=== PATIENT | female | born 1955 | race Caucasian/White ===

== ENCOUNTER 2017-09-06 14:15 | Emergency (ER) | payer OTHER ==
[2017-09-06] MEDS ORDERED: ONDANSETRON HCL MDV 20ML 2 MG/ML VIAL ONE ×2 (14:40→17:55)
[2017-09-06] MEDS ORDERED: MORPHINE SULFATE 4 MG/1ML SYG ONE (14:40)
[2017-09-06 14:45] LABS: BASOPHILS % (AUTO) 0.5 % (0.0-5.0); EOSINOPHILS % (AUTO) 2.2 % (0.0-8.0); HEMATOCRIT 35.9 % (36-48); LYMPHOCYTES % (AUTO) 15.9 % (21.0-51.0); MEAN CORPUSCULAR HEMOGLOBIN 28.3 pg (27.0-33.0); MEAN CORPUSCULAR HGB CONC 33.5 g/dL (32.0-36.0); MEAN CORPUSCULAR VOLUME 84.7 fL (79-99); MONOCYTES % (AUTO) 5.3 % (3.0-13.0); NEUTROPHILS % (AUTO) 76.1 % (40.0-77.0); PLATELET COUNT (AUTO) 271 K/uL (130-400); RED BLOOD CELL COUNT(AUTO) 4.23 MIL/uL (4.00-5.50); RED CELL DISTRIBUTION WIDTH 15.9 % (11.0-15.5); WHITE BLOOD COUNT (AUTO) 10.6 K/uL (4.8-10.8)
[2017-09-06 14:54] LABS: POTASSIUM 3.9 mmol/L (3.5-5.1)
[2017-09-06 14:59] LABS: ALBUMIN 3.9 g/dL (3.5-5.0); BILIRUBIN,TOTAL 0.3 mg/dL (0.2-1.0); TOTAL PROTEIN, SERUM 8.1 g/dL (6.0-8.3)
[2017-09-06 15:12] LABS: CREATINE KINASE MB 1.2 ng/mL (0.5-3.6)
[2017-09-06 15:26] LABS: APPEARANCE,URINE Clear (CLEAR); BILIRUBIN,URINE Negative (NEGATIVE); COLOR,URINE Yellow (YELLOW); GLUCOSE, URINE (UA) Negative (NEGATIVE); KETONES,URINE Negative (NEGATIVE); LEUKOCYTE ESTERASE ,URINE Negative (NEGATIVE); NITRATE,URINE Negative (NEGATIVE); OCCULT BLOOD,URINE Negative (NEGATIVE); PROTEIN,URINE Negative (NEGATIVE); UROBILINOGEN,URINE 0.2 mg/dL (0.2-1.0)
[2017-09-06] MEDS ORDERED: IOPAMIDOL-370 75 ML VIAL IV ONE (16:30)
[2017-09-06] MEDS ORDERED: SODIUM CHLORIDE 0.9% 1000ML 1,000 ML IV ONE (17:55)
== END 2017-09-06 20:25 | disposition home or self-care (01) ==
LOC: EDH 14:15
DX: A08.39 Other viral enteritis (principal); R10.10 Upper abdominal pain, unspecified; I10 Essential (primary) hypertension; Z88.8 Allergy status to other drugs, medicaments and biological substances
CPT/HCPCS: 36415; 74177; 76705; 80053; 81003; 82550; 82553; 83690; 84484; 85025; 93005; 96361; 96374; 96375; 96376; 99285; J2270; J7030; Q9967

== ENCOUNTER → 2020-08-18 | Outpatient (CLI) | payer OTHER ==
[~2020-08-18] MED LIST: ASPI-556 PO; DIATR MEGLU/DIATRIZOATE SODIUM 30 ML BOTTLE ONE; HYDR25TA PO; LOSA100T58 PO
== END | disposition home or self-care (01) ==
LOC: RAH 08:20
PROVIDERS: ATTEND Internal Medicine Gastroenterology
DX: K56.609 Unspecified intestinal obstruction, unspecified as to partial versus complete obstruction (principal)
CPT/HCPCS: 74250; Q9963

== ENCOUNTER 2024-04-22 21:41 | Emergency (ER) | payer OTHER ==
[~2024-04-22] VITALS: Ht 152.4 cm; Wt 69.9 kg
[~2024-04-22 21:41] MED LIST changes: -DIATR MEGLU/DIATRIZOATE SODIUM 30 ML BOTTLE ONE; -LOSA100T58 PO; +LOSA100T59 PO
[2024-04-22 22:37] LABS: BASOPHILS # (AUTO) 0.04 K/uL (0.00-0.20); BASOPHILS % (AUTO) 0.4 % (0.0-5.0); EOSINOPHILS # (AUTO) 0.19 K/uL (0.00-0.70); EOSINOPHILS % (AUTO) 1.7 % (0.0-8.0); HEMATOCRIT 37.5 % (36-48); IMMATURE GRANULOCYTE ABSOLUTE 0.03 K/uL (0-1); LYMPHOCYTES # (AUTO) 1.9 K/uL (1.0-4.8); LYMPHOCYTES % (AUTO) 17.2 % (21.0-51.0); MEAN CORPUSCULAR HEMOGLOBIN 28.9 pg (27.0-33.0); MEAN CORPUSCULAR HGB CONC 32.5 g/dL (32.0-36.0); MEAN CORPUSCULAR VOLUME 88.9 fL (79-99); MONOCYTES # (AUTO) 0.8 K/uL (0.1-1.0); MONOCYTES % (AUTO) 6.9 % (3.0-13.0); NEUTROPHILS # (AUTO) 8.2 K/uL (1.8-7.7); NEUTROPHILS % (AUTO) 73.5 % (40.0-77.0); PLATELET COUNT (AUTO) 278 K/uL (130-400); RED BLOOD CELL COUNT(AUTO) 4.22 MIL/uL (4.00-5.50); RED CELL DISTRIBUTION WIDTH 14.9 % (11.0-15.5); WHITE BLOOD COUNT (AUTO) 11.1 K/uL (4.8-10.8)
[2024-04-22 22:51] LABS: CREATININE 1.2 mg/dL (0.5-1.0)
[2024-04-22 22:55] LABS: ALBUMIN 3.7 g/dL (3.5-5.0); BILIRUBIN,DIRECT 0.1 mg/dL (0.0-0.3); BILIRUBIN,TOTAL 0.3 mg/dL (0.2-1.0); TOTAL PROTEIN, SERUM 7.7 g/dL (6.0-8.3)
[2024-04-22] MEDS: ondanSETRON 4MG INJ IVP ONE (23:22)
[2024-04-22] MEDS: ondanSETRON 4MG INJ ONE (23:22)
--- NOTE | 2024-04-22 23:56 | HMCIMG ---
CT ABDOMEN/PELVIS W/O CONTRAST HISTORY: Abdominal pain COMPARISON: 04/27/2023 TECHNIQUE: Multiple sequential axial images of the abdomen and pelvis were obtained from the dome of the diaphragm through symphysis pubis. Patient was not given contrast through intravenous route. Oral contrast was not given. FINDINGS: No pleural effusion is seen bilaterally. There is no evidence of parenchymal disease or pulmonary nodule of the visualized lower lungs. Degenerative changes of the thoracolumbar spine are present. The heart is not enlarged. Liver is borderline in size measuring 15 cm. A small hiatal hernia is seen. Post cholecystectomy changes are seen. Gastric distention is seen. Mild small bowel dilatation is seen with fluid-filled small bowel loops and colon and air-fluid levels may be related to enterocolitis with bowel obstruction not completely excluded. The liver, spleen, adrenal glands and pancreas are unremarkable. There is no evidence of hydronephrosis bilaterally. No evidence of renal stone is seen. Fecal material is seen in the colon. There are normal size retroperitoneal and mesenteric lymph nodes. No ascites is seen. Atherosclerotic changes are present. Appendix is not seen. Pelvic sidewalls are symmetric bilaterally. Bladder is well distended without wall thickening. IMPRESSION: 1. Gastric distention is seen. Mild small bowel dilatation is seen with fluid-filled small bowel loops and colon and air-fluid levels may be related to enterocolitis with bowel obstruction not completely excluded. CT was performed with one or more following dose reduction techniques: automated exposure control, adjustment of the mA and kv according to patient's size, or use of a iterative reconstruction technique.
[2024-04-23] MEDS ORDERED: ONDA-243 PO (00:23)
[2024-04-23] MEDS ORDERED: METR-172 PO (00:23)
[2024-04-23] MEDS ORDERED: FAMO-136 PO (00:23)
--- NOTE | 2024-04-23 00:26 | ERN ---
General Chief Complaint: Abdominal Pain Stated Complaint: C/O ABD PAIN WITH N X V Time Seen by MD: 21:49 Time Seen by Midlevel: 21:49 Source: patient History of Present Illness Initial Comments Patient is a 68-year-old female past medical history of multiple small-bowel obstructions presenting to the emergency department with sudden onset of diffuse abdominal pain with associated nausea and vomiting. Patient believes it may be the start of a small-bowel obstruction. She does report eating some food that did not sit well with her stomach prior to the pain starting. No other symptoms reported at this time. Allergies: Coded Allergies: Beta-Blockers (Beta-Adrenergic Bloc (Unverified Adverse Reaction, Severe, 06/28/19) JAUNDICE Home Meds Active Scripts Metronidazole (Metronidazole) 500 Mg Tablet, 1 TAB PO BID for 5 Days, #10 TAB 0 Refills Prov:BERTA CUNHA 04/23/24 Famotidine (Pepcid) 20 Mg Tablet, 1 TAB PO BID for 7 Days, #14 TAB 0 Refills Prov:BERTA CUNHA 04/23/24 Ondansetron (Ondansetron Odt) 4 Mg Tab.rapdis, 4 MG PO BID for 7 Days, #14 TAB Prov:BERTA CUNHA 04/23/24 Reported Medications Aspirin (Aspir 81) 81 Mg Tablet.dr, 81 MG PO DAILY, TAB 06/28/19 Hydrochlorothiazide (Hydrochlorothiazide) 25 Mg Tablet, 25 MG PO DAILY, TAB 06/28/19 Losartan Potassium (Losartan Potassium) 100 Mg Tablet, 100 MG PO DAILY, TAB 06/28/19 Past Medical History Past Medical History: Hypertension Medical History Other: SBO Past Surgical History: Cholecystectomy Surgical History Other: HX OF BOWEL RESECTION ROS Dictation CONSTITUTIONAL: Negative except for HPI HEAD/FACE: Negative except for HPI EENT: Negative except for HPI RESPIRATORY: Negative except for HPI GASTROINTESTINAL/ABDOMINAL: Negative except for HPI GENITOURINARY: Negative except for HPI MUSCULOSKELETAL: Negative except for HPI INTEGUMENTARY: Negative except for HPI NEUROLOGICAL/PSYCH: Negative except for HPI HEMATOLOGIC/LYMPHATIC: Negative except for HPI All Systems Negative, Except as noted above. 13 point review of systems assessed and all negative except for above. Physical Exam Physical Exam Dictation Vital Signs reviewed General Appearance: Alert, oriented x 3, no acute distress, well developed, nourished. Head and Face: non-traumatic. Eyes: PERRL, pink conjunctivas, eyelid no trauma, anterior chamber with arcus senilis. Ears: Pinnas intact and no signs of trauma or erythema ear canals clear and no discharge TM no erythema Nose: No discharge, no bleeding. Oropharynx: Mouth normal, tongue pink, pharynx clear,no erythema, tonsils no exudates, no abscesses noted, mucous membrane moist Neck: Supple, non-tender, no thyromegaly, no masses, no JVD, no bruits Breast:Deferred Chest:No tenderness, no crepitus, no paradoxical movement, no retractions Lungs:Clear, well-ventilated, symmetric, no rales, no wheezing, no rhonchi, no stridor, good breath sounds bilaterally Heart: Regular rate, regular rhythm, no murmur, no gallops Vascular: no peripheral edema, Abdomen: Soft, positive bowel sounds, nondistended, no guarding, Diffuse abdominal tenderness, no rebound, no masses no hepatomegaly, no splenomegaly, no Ojeda's sign, no hernias. Rectal: Deferred Genital: Deferred Neurological: Normal speech, motor function intact, sensory function intact Musculoskeletal: Neck nontender, full range of motion, back nontender, full range of motion, Extremities: nontender, full range of motion Skin: Color pink, dry, no turgor, no rash, no lacerations, no abrasions, no contusions. Lymphatic: Deferred Results Laboratory and Microbiology Lab and Micro Result Laboratory Tests Test 04/22/24 22:24 White Blood Count 11.1 K/uL (4.8-10.8) H Red Blood Count 4.22 MIL/uL (4.00-5.50) Hemoglobin 12.2 g/dL (12.0-16.0) Hematocrit 37.5 % (36-48) Mean Corpuscular Volume 88.9 fL (79-99) Mean Corpuscular Hemoglobin 28.9 pg (27.0-33.0) Mean Corpuscular Hemoglobin Concent 32.5 g/dL (32.0-36.0) Red Cell Distribution Width 14.9 % (11.0-15.5) Platelet Count 278 K/uL (130-400) Mean Platelet Volume 9.5 fL (7.5-10.5) Immature Granulocyte % (Auto) 0.3 % (0-1) Neutrophils (%) (Auto) 73.5 % (40.0-77.0) Lymphocytes (%) (Auto) 17.2 % (21.0-51.0) L Monocytes (%) (Auto) 6.9 % (3.0-13.0) Eosinophils (%) (Auto) 1.7 % (0.0-8.0) Basophils (%) (Auto) 0.4 % (0.0-5.0) Neutrophils # (Auto) 8.2 K/uL (1.8-7.7) H Lymphocytes # (Auto) 1.9 K/uL (1.0-4.8) Monocytes # (Auto) 0.8 K/uL (0.1-1.0) Eosinophils # (Auto) 0.19 K/uL (0.00-0.70) Basophils # (Auto) 0.04 K/uL (0.00-0.20) Absolute Immature Granulocyte (auto 0.03 K/uL (0-1) Nucleated Red Blood Cells 0.0 % (0.0-0.19) Sodium Level 140 mmol/L (136-145) Potassium Level 4.0 mmol/L (3.5-5.1) Chloride Level 102 mmol/L (101-111) Carbon Dioxide Level 31 mmol/L (21-32) Blood Urea Nitrogen 18 mg/dL (7-18) Creatinine 1.2 mg/dL (0.5-1.0) H Glomerular Filtration Rate Calc 49 mL/min (>90) Random Glucose 111 mg/dL (70-105) H Total Calcium 9.2 mg/dL (8.5-10.1) Total Bilirubin 0.3 mg/dL (0.2-1.0) Direct Bilirubin 0.1 mg/dL (0.0-0.3) Aspartate Amino Transf (AST/SGOT) 20 U/L (10-37) Alanine Aminotransferase (ALT/SGPT) 24 U/L (12-78) Alkaline Phosphatase 79 U/L (50-136) Total Protein 7.7 g/dL (6.0-8.3) Albumin 3.7 g/dL (3.5-5.0) Lipase 55 U/L (16-77) Labs Reviewed?: Yes MDM MDM: Patient is a 68-year-old female past medical history of multiple small- bowel obstructions presenting to the emergency department with sudden onset of diffuse abdominal pain with associated nausea and vomiting. Patient believes it may be the start of a small-bowel obstruction. She does report eating some food that did not sit well with her stomach prior to the pain starting. No other symptoms reported at this time. On physical examination patient is actively vomiting. She was diffuse abdominal tenderness. Given her clinical presentation a CT scan of the abdomen and pelvis was ordered which is concerning for enterocolitis. Small-bowel obstruction can not completely be ruled out at this time. Her CBC shows slight leukocytosis with a left shift. Her chemistries are unremarkable. Patient was given morphine Zofran and Pepcid and was observed in the emergency department for over 2 hours where she reports feeling significantly improved. Gave her the option to be admitted for observation given her extensive history of small-bowel obstruction requiring colon resection however she does report feeling improved so she would like to take the conservative route and be discharged home with close return precautions. I did discussed that this could be the start of an enterocolitis episode. She states she would feel more comfortable going home and if she was to worsens she will be reporting back to the emergency department for further evaluation. Differential diagnosis: Small-bowel obstruction, gastroenteritis, enterocolitis There are no social concerns with this patient. Prescription drug management Prescriptions will include: Zofran, Pepcid, Flagyl Medical management and examination interpretation discussions were had by me with other qualified healthcare professionals as indicated for the patient's care. ED Course Orders Procedure Category Date Status Time Vital Signs Per CPOE 04/22/24 Transmitted Routine 21:49 Saline Lock Iv CPOE 04/22/24 Transmitted 21:49 Cbc With Differential LAB 04/22/24 Complete 21:49 Lipase LAB 04/22/24 Complete 21:49 Basic Metabolic Panel LAB 04/22/24 Complete 21:49 Hepatic Function Panel LAB 04/22/24 Complete 21:49 Ct Abdomen/Pelvis W/O CT 04/22/24 Resulted Contrast 23:13 Ondansetron 4mg Inj PHA 04/22/24 Complete (Zofran 4mg Inj) 23:30 Ondansetron 4mg Inj PHA 04/22/24 Complete (Zofran 4mg Inj) 23:15 Morphine 2mg Syg PHA 04/23/24 Complete (Morphine 2mg Syg) 00:30 Famotidine 20mg Vial PHA 04/23/24 Complete (Pepcid 20mg Vial) 00:30 Current Medications Medications (Trade) Dose Ordered Sig/Antwan Route PRN Reason Start Time Stop Time Status Last Admin Dose Admin Famotidine (Pepcid 20mg Vial) 20 mg ONCE ONCE IV 04/23/24 00:30 04/23/24 00:31 DC 04/23/24 00:33 Morphine Sulfate (morPHINE 2MG SYG) 2 mg ONCE ONCE IVP 04/23/24 00:30 04/23/24 00:31 DC 04/23/24 00:33 Ondansetron HCl (zoFRAN 4MG INJ) 4 mg ONCE ONCE IVP 04/22/24 23:30 04/22/24 23:31 DC 04/22/24 23:22 Ondansetron HCl (zoFRAN 4MG INJ) 4 mg STK-MED ONCE .ROUTE 04/22/24 23:15 04/22/24 23:20 DC Vital Signs Date Time Temp Pulse Resp B/P (MAP) Pulse Ox O2 Delivery O2 Flow Rate FiO2 04/23/24 01:00 98.2 74 16 108/64 99 Room Air* 0 21 04/22/24 22:45 98.8 78 18 105/70 98 Room Air* 0 21 04/22/24 21:43 98.8 91 16 179/83 97 [place] [address] IMAGING REPORT Signed PATIENT: RIGO LORD MR#: [id number] : 1955 SEX: F AGE: 68 LOCATION: [facility] ORDER 14 STATUS: REG ER REPORT#: [id number] SERVICE 12 REASON: ABD PAIN, NAUSEA ORDERING PHYSICIAN: BERTA CUNHA PROCEDURE: ABD PEL WO - CT ABDOMEN/PELVIS W/O CONTRAST CT ABDOMEN/PELVIS W/O CONTRAST HISTORY: Abdominal pain COMPARISON: 04/27/2023 TECHNIQUE: Multiple sequential axial images of the abdomen and pelvis were obtained from the dome of the diaphragm through symphysis pubis. Patient was not given contrast through intravenous route. Oral contrast was not given. FINDINGS: No pleural effusion is seen bilaterally. There is no evidence of parenchymal disease or pulmonary nodule of the visualized lower lungs. Degenerative changes of the thoracolumbar spine are present. The heart is not enlarged. Liver is borderline in size measuring 15 cm. A small hiatal hernia is seen. Post cholecystectomy changes are seen. Gastric distention is seen. Mild small bowel dilatation is seen with fluid-filled small bowel loops and colon and air-fluid levels may be related to enterocolitis with bowel obstruction not completely excluded. The liver, spleen, adrenal glands and pancreas are unremarkable. There is no evidence of hydronephrosis bilaterally. No evidence of renal stone is seen. Fecal material is seen in the colon. There are normal size retroperitoneal and mesenteric lymph nodes. No ascites is seen. Atherosclerotic changes are present. Appendix is not seen. Pelvic sidewalls are symmetric bilaterally. Bladder is well distended without wall thickening. IMPRESSION: 1. Gastric distention is seen. Mild small bowel dilatation is seen with fluid-filled small bowel loops and colon and air-fluid levels may be related to enterocolitis with bowel obstruction not completely excluded. CT was performed with one or more following dose reduction techniques: automated exposure control, adjustment of the mA and kv according to patient's size, or use of a iterative reconstruction technique. DICTATED BY: KEVEN RODRIGUEZ MD DATE: 04/22/242350 ELECTRONICALLY SIGNED BY: KEVEN RODRIGUEZ MD DATE: 04/22/242355 DX & DISP Disposition: Discharge Departure Impression: Primary Impression: Enterocolitis Condition: Stable Scripts Metronidazole (Metronidazole) 500 Mg Tablet 1 TAB PO BID for 5 Days, #10 TAB 0 Refills Prov: BERTA CUNHA 04/23/24 Famotidine (Pepcid) 20 Mg Tablet 1 TAB PO BID for 7 Days, #14 TAB 0 Refills Prov: BERTA CUNHA 04/23/24 Ondansetron (Ondansetron Odt) 4 Mg Tab.rapdis 4 MG PO BID for 7 Days, #14 TAB Prov: BERTA CUNHA 04/23/24 Additional Instructions: Your blood work today is stable. Your CT scan of the abdomen and pelvis shows findings that may be related to enterocolitis however bowel obstruction is not completely excluded. If your symptoms do not improve over the next 24-48 hours please report to the ER for further evaluation. Follow up with your primary care doctor in 2-3 days for repeat evaluation. Referrals: STEPHEN CURTIS MD (PCP) Time of Disposition: 00:23 I have reviewed the case, and I agree with, Diagnosis and Plan I performed the substantive portion of the visit. I have reviewed and personally made and approve the management plan that is documented in the note by myself or the CHAR. I acknowledge for responsibility for the patient's management plan. BERTA CUNHA Apr 23, 2024 00:26
[2024-04-23] MEDS: FAMOTIDINE 20MG VIAL IV ONE (00:33)
[2024-04-23] MEDS: morPHINE 2 MG SYG IVP ONE (00:33)
[2024-04-23 01:00] VITALS: BP 108/64; PULSE 74; RESP 16; TEMP 98.2; O2SAT 99
[2024-04-24] MEDS ORDERED: AMLO-258 PO (18:06)
== END 2024-04-23 01:02 | disposition home or self-care (01) ==
LOC: EDH 21:41
DX: K52.9 Noninfective gastroenteritis and colitis, unspecified (principal); I10 Essential (primary) hypertension; Z79.82 Long term (current) use of aspirin; Z79.899 Other long term (current) drug therapy; Z90.49 Acquired absence of other specified parts of digestive tract
CPT/HCPCS: 99285; 74176; 96374; 80076; 80048; 83690; 85025; 36415; 96375; J2405; J3490; J2270

== ENCOUNTER 2024-04-24 07:30 | Inpatient (IN) | payer OTHER ==
[~2024-04-24] VITALS: Ht 160 cm; Wt 69.4 kg
[~2024-04-24 07:30] MED LIST changes: +FAMO-136 PO; +METR-172 PO; +ONDA-243 PO
[2024-04-24 08:15] LABS: BASOPHILS # (AUTO) 0.02 K/uL (0.00-0.20); BASOPHILS % (AUTO) 0.2 % (0.0-5.0); EOSINOPHILS # (AUTO) 0.16 K/uL (0.00-0.70); EOSINOPHILS % (AUTO) 1.7 % (0.0-8.0); HEMATOCRIT 36.4 % (36-48); IMMATURE GRANULOCYTE ABSOLUTE 0.02 K/uL (0-1); LYMPHOCYTES # (AUTO) 1.4 K/uL (1.0-4.8); MEAN CORPUSCULAR HEMOGLOBIN 28.9 pg (27.0-33.0); MEAN CORPUSCULAR HGB CONC 32.1 g/dL (32.0-36.0); MEAN CORPUSCULAR VOLUME 89.9 fL (79-99); MONOCYTES # (AUTO) 0.8 K/uL (0.1-1.0); MONOCYTES % (AUTO) 8.2 % (3.0-13.0); NEUTROPHILS # (AUTO) 6.9 K/uL (1.8-7.7); NEUTROPHILS % (AUTO) 74.7 % (40.0-77.0); PLATELET COUNT (AUTO) 241 K/uL (130-400); RED BLOOD CELL COUNT(AUTO) 4.05 MIL/uL (4.00-5.50); RED CELL DISTRIBUTION WIDTH 14.9 % (11.0-15.5); WHITE BLOOD COUNT (AUTO) 9.2 K/uL (4.8-10.8)
--- NOTE | 2024-04-24 08:27 | EKG ---
[facility] Test Date: 2024-04-24 Test Time: 07:53:44 Pat Name: RIGO LORD Department: ED Room: 305 Gender: F Public Relations: [id number] : 1955 Requested By: JUANJOSE HAGER Order Number: [id number] Reading MD: Felipe Watson Measurements Intervals Stover Rate: 66 P: 70 MS: 143 QRS: 3 QRSD: 77 T: 8 QT: 404 QTc: 422 Interpretive Statements Sinus rhythm Low voltage, precordial leads Compared to ECG 04/27/2023 16:23:35 No significant changes Electronically Signed On 04-26-2024 17:34:16 [employer] by Felipe Watson Please click the below link to view image of tracing.
[2024-04-24 08:28] LABS: ALBUMIN 3.6 g/dL (3.5-5.0); BILIRUBIN,TOTAL 0.4 mg/dL (0.2-1.0); CREATININE 1.1 mg/dL (0.5-1.0); POTASSIUM 4.1 mmol/L (3.5-5.1); TOTAL PROTEIN, SERUM 7.1 g/dL (6.0-8.3)
--- NOTE | 2024-04-24 08:33 | ERN ---
General Chief Complaint: Abdominal Pain Stated Complaint: ABDOMINAL PAIN Time Seen by MD: 07:33 Source: patient History of Present Illness Initial Comments Patient is a 68-year-old female coming in to be evaluated for abdominal pain. Patient was recently seen two days ago in the ER for same reason. Patient at the time was diagnosed with early small-bowel obstruction. Patient will be discharged home states he has had one bowel movement shortly after that she started having abdominal discomfort again. Yesterday she states that she could not tolerate oral intake and started vomiting. Today she is presenting with generalized abdominal pain nausea and vomiting. Allergies: Coded Allergies: Beta-Blockers (Beta-Adrenergic Bloc (Unverified Adverse Reaction, Severe, 06/28/19) JAUNDICE Home Meds Active Scripts Metronidazole (Metronidazole) 500 Mg Tablet, 1 TAB PO BID for 5 Days, #10 TAB 0 Refills Prov:BERTA CUNHA 04/23/24 Famotidine (Pepcid) 20 Mg Tablet, 1 TAB PO BID for 7 Days, #14 TAB 0 Refills Prov:BERTA CUNHA 04/23/24 Ondansetron (Ondansetron Odt) 4 Mg Tab.rapdis, 4 MG PO BID for 7 Days, #14 TAB Prov:BERTA CUNHA 04/23/24 Reported Medications Aspirin (Aspir 81) 81 Mg Tablet.dr, 81 MG PO DAILY, TAB 06/28/19 Hydrochlorothiazide (Hydrochlorothiazide) 25 Mg Tablet, 25 MG PO DAILY, TAB 06/28/19 Losartan Potassium (Losartan Potassium) 100 Mg Tablet, 100 MG PO DAILY, TAB 06/28/19 Past Medical History Past Medical History: Hypertension Medical History Other: SBO Past Surgical History: Cholecystectomy Surgical History Other: HX OF BOWEL RESECTION ROS Dictation CONSTITUTIONAL: No chills, no fever, no weakness, no diaphoresis, no malaise. HEAD/FACE: No signs of trauma. EENT: No eye pain, no blurred vision, no tearing, no double vision, no ear pain, no ear discharge, no nose pain, no nasal congestion, no throat pain, no throat swelling, no mouth pain. RESPIRATORY: No cough, no orthopnea, no SOB, no stridor, no wheezing. CARDIOVASCULAR: No chest pain, no edema, no palpitations, no syncope. GASTROINTESTINAL/ABDOMINAL: abdominal pain, no constipation, no diarrhea, no nausea, no vomiting. GENITOURINARY: No abnormal discharge, no dysuria, no frequent urination, no hematuria. No complaints of pain in the genitals. MUSCULOSKELETAL: No back pain, no gout, no joint pain, no joint swelling, no muscle pain, no muscle stiffness, no neck pain. INTEGUMENTARY: No change in color, no change in hair/nails, no dryness, no lesion, no lumps, no rash. NEUROLOGICAL/PSYCH: No anxiety, not depressed, no emotional problem, no headache, no numbness, no pre-existing deficit, no history of seizures, no tremors, no weakness. HEMATOLOGIC/LYMPHATIC: Not anemic, no history of blood clots, no apparent bleeding, no bruising, glands not swollen. All Systems Negative, Except as Noted. Physical Exam Physical Exam Dictation VITAL SIGNS: Reviewed. GENERAL APPEARANCE: Alert, oriented x3, no acute distress, obese. HEAD AND FACE: Non-traumatic. EYES: PERRL, pink conjunctivas, eyelid no trauma, anterior chamber clear. EARS: Pinnas intact and no signs of trauma or erythema. Ear canals clear and n o discharge. TMs no erythema. NOSE: No discharge, no bleeding. OROPHARYNX: Mouth normal, teeth no caries, tongue pink. Pharynx clear, no erythema. Tonsils no exudates, no abscesses noted. Mucous membrane moist. NECK: Supple, non-tender, no thyromegaly, no masses, no JVD, no bruits. BREAST: Deferred. CHEST: No tenderness, no crepitus, no paradoxical movement, no retractions. LUNGS: Clear, well-ventilated, symmetric, no rales, no wheezing, no rhonchi, no stridor, good breath sounds bilaterally. HEART: Regular rate, regular rhythm, no murmur, no gallops. VASCULAR: No peripheral edema. ABDOMEN: Soft, positive bowel sounds, distended, no guarding, tender, no rebound, no masses no hepatomegaly, no splenomegaly, no Ojeda's sign, no hernias. RECTAL: Deferred. GENITAL: Deferred. NEUROLOGICAL: Normal speech, gross motor function intact, gross sensory function intact. MUSCULOSKELETAL: Neck nontender, full range of motion, back nontender, full range of motion. EXTREMITIES: Nontender, full range of motion. SKIN: Color pink, dry, no turgor, no rash, no lacerations, no abrasions, no contusions. LYMPHATICS: Deferred. Results Laboratory and Microbiology Lab and Micro Result Laboratory Tests Test 04/24/24 07:55 04/24/24 08:02 Urine Color YELLOW (YELLOW) Urine Appearance CLEAR (CLEAR) Urine pH 6.0 (5.0-8.0) Urine Specific [place] 1.022 (1.001-1.031) Urine Protein 300 mg/dL (NEGATIVE) H Urine Glucose (UA) NEGATIVE mg/dL (NEGATIVE) Urine Ketones 10 mg/dL (NEGATIVE) H Urine Occult Blood NEGATIVE (NEGATIVE) Urine Nitrate NEGATIVE (NEGATIVE) Urine Bilirubin NEGATIVE mg/dL (NEGATIVE) Urine Urobilinogen 0.2 mg/dL (0.2-1.0) Urine Leukocyte Esterase 75 Flaco/uL (NEGATIVE) H Urine RBC 2-5 /HPF (0-1) H Urine WBC 2-5 /HPF (0-1) H Urine Squamous Epithelial Cells RARE /HPF (0-2) Urine Bacteria None /HPF (None Seen) Urine Hyaline Casts 2-5 /LPF (0-1 /LPF) H White Blood Count 9.2 K/uL (4.8-10.8) Red Blood Count 4.05 MIL/uL (4.00-5.50) Hemoglobin 11.7 g/dL (12.0-16.0) L Hematocrit 36.4 % (36-48) Mean Corpuscular Volume 89.9 fL (79-99) Mean Corpuscular Hemoglobin 28.9 pg (27.0-33.0) Mean Corpuscular Hemoglobin Concent 32.1 g/dL (32.0-36.0) Red Cell Distribution Width 14.9 % (11.0-15.5) Platelet Count 241 K/uL (130-400) Mean Platelet Volume 9.4 fL (7.5-10.5) Immature Granulocyte % (Auto) 0.2 % (0-1) Neutrophils (%) (Auto) 74.7 % (40.0-77.0) Lymphocytes (%) (Auto) 15.0 % (21.0-51.0) L Monocytes (%) (Auto) 8.2 % (3.0-13.0) Eosinophils (%) (Auto) 1.7 % (0.0-8.0) Basophils (%) (Auto) 0.2 % (0.0-5.0) Neutrophils # (Auto) 6.9 K/uL (1.8-7.7) Lymphocytes # (Auto) 1.4 K/uL (1.0-4.8) Monocytes # (Auto) 0.8 K/uL (0.1-1.0) Eosinophils # (Auto) 0.16 K/uL (0.00-0.70) Basophils # (Auto) 0.02 K/uL (0.00-0.20) Absolute Immature Granulocyte (auto 0.02 K/uL (0-1) Nucleated Red Blood Cells 0.0 % (0.0-0.19) Sodium Level 141 mmol/L (136-145) Potassium Level 4.1 mmol/L (3.5-5.1) Chloride Level 104 mmol/L (101-111) Carbon Dioxide Level 29 mmol/L (21-32) Blood Urea Nitrogen 13 mg/dL (7-18) Creatinine 1.1 mg/dL (0.5-1.0) H Glomerular Filtration Rate Calc 54 mL/min (>90) Random Glucose 111 mg/dL (70-105) H Total Calcium 8.9 mg/dL (8.5-10.1) Total Bilirubin 0.4 mg/dL (0.2-1.0) Aspartate Amino Transf (AST/SGOT) 17 U/L (10-37) Alanine Aminotransferase (ALT/SGPT) 20 U/L (12-78) Alkaline Phosphatase 73 U/L (50-136) Total Creatine Kinase 78 U/L (21-232) # Troponin I High Sensitivity < 4 ng/L (4-50) L Total Protein 7.1 g/dL (6.0-8.3) Albumin 3.6 g/dL (3.5-5.0) Lipase 34 U/L (16-77) Labs Reviewed?: Yes EKG/XRAY/US/CT/MRI EKG Comment 04/24/2024 time 07:53 am Vent rate 66 sinus rhythm pr [address] wave elevation or depression CT Scan Comment [address] [place] [id number] IMAGING REPORT Signed PATIENT: RIGO LORD MR#: [id number] : 1955 SEX: F AGE: 68 LOCATION: [facility] ORDER 7 STATUS: [facility] ER REPORT#: [id number] SERVICE 6 REASON: ABD PAIN ORDERING PHYSICIAN: JUANJOSE HAGER MD PROCEDURE: ABD PEL WO - CT ABDOMEN/PELVIS W/O CONTRAST CT ABDOMEN/PELVIS W/O CONTRAST HISTORY: No additional history given. COMPARISON: None TECHNIQUE: Multiple sequential axial images of the abdomen and pelvis were obtained from the dome of the diaphragm through symphysis pubis. Patient was not given contrast through intravenous route. Oral contrast was not given. FINDINGS: No pleural effusion is seen bilaterally. There is no evidence of parenchymal disease or pulmonary nodule of the visualized lower lungs. Degenerative changes of the thoracolumbar spine are present. The heart is not enlarged. Postcholecystectomy changes are seen. Liver measures 15 cm with fatty changes. The liver, spleen, adrenal glands and pancreas are unremarkable. Bilateral renal cortical scarring seen. There is no evidence of hydronephrosis bilaterally. No evidence of renal stone is seen. Mild small bowel dilatation is seen may be related to enterocolitis with early bowel obstruction not excluded. Fecal material is seen in the colon. There are normal size retroperitoneal and mesenteric lymph nodes. No ascites is seen. Atherosclerotic changes are present. Pelvic sidewalls are symmetric bilaterally. Bladder is poorly distended. IMPRESSION: 1. Mild small bowel dilatation is seen may be related to enterocolitis with early bowel obstruction not excluded. CT was performed with one or more following dose reduction techniques: automated exposure control, adjustment of the mA and kv according to patient's size, or use of a iterative reconstruction technique. DICTATED BY: KEVEN RODRIGUEZ MD DATE: 04/24/24839 ELECTRONICALLY SIGNED BY: KEVEN RODRIGUEZ MD DATE: 04/24/24846 [facility] MDM: Differential diagnosis: Small-bowel obstruction, enterocolitis, Rationale: Tests considered and ordered secondary to shared decision making include: labs, ECG and radiology Previous outside records reviewed: Old ER visits. Risk of complication and/or morbidity or mortality of patient management: None Medications-Per medication reconciliation Need for hospitalization: Patient does meet criteria for hospitalization. Need for emergency major/minor surgery: No There are no social concerns with this patient. Prescription drug management Prescriptions will include symptomatic care Patient's prior external medical records from other ER visits were reviewed by me as indicated. Prior testing and results from previous visits were reviewed. Prior tests were taken into account with medical decision making and resource utilization, independent historian/historians were used to obtain complete medical history. I independently interpreted the test that were performed, results were reviewed by me and considered findings on radiology if ordered. Medical management and examination interpretation discussions were had by me with other qualified healthcare professionals as indicated for the patient's care. Patient will be admitted under the care of Dr. Tomas for ongoing management of early small-bowel obstruction. ED Course Orders Procedure Category Date Status Time Cbc With Differential LAB 04/24/24 Complete 07:47 Comprehensive LAB 04/24/24 Complete Metabolic Panel 07:47 Troponin I High LAB 04/24/24 Complete Sensitivity 07:47 Urinalysis Profile LAB 04/24/24 Complete 07:47 12 Lead Ekg Tracing- EKG 04/24/24 Complete Technical 07:47 Creatine Kinase, Total LAB 04/24/24 Complete 07:47 Ct Abdomen/Pelvis W/O CT 04/24/24 Resulted Contrast 07:47 Lipase LAB 04/24/24 Complete 07:47 Culture Urine FABIEN 04/24/24 Logged 08:50 Vital Signs Date Time Temp Pulse Resp B/P (MAP) Pulse Ox O2 Delivery O2 Flow Rate FiO2 04/24/24 07:35 97.3 68 16 150/83 98 0 04/24/24 07:31 97.3 68 16 150/83 98 Room Air* 0 21 DX & DISP Disposition: Inpatient Decision to Admit Time: 08:58 Departure Impression: Primary Impression: Bowel obstruction Condition: Stable Referrals: STEPHEN CURTIS MD (PCP) JUANJOSE HAGER MD Apr 24, 2024 08:33
--- NOTE | 2024-04-24 08:47 | HMCIMG ---
CT ABDOMEN/PELVIS W/O CONTRAST HISTORY: No additional history given. COMPARISON: None TECHNIQUE: Multiple sequential axial images of the abdomen and pelvis were obtained from the dome of the diaphragm through symphysis pubis. Patient was not given contrast through intravenous route. Oral contrast was not given. FINDINGS: No pleural effusion is seen bilaterally. There is no evidence of parenchymal disease or pulmonary nodule of the visualized lower lungs. Degenerative changes of the thoracolumbar spine are present. The heart is not enlarged. Postcholecystectomy changes are seen. Liver measures 15 cm with fatty changes. The liver, spleen, adrenal glands and pancreas are unremarkable. Bilateral renal cortical scarring seen. There is no evidence of hydronephrosis bilaterally. No evidence of renal stone is seen. Mild small bowel dilatation is seen may be related to enterocolitis with early bowel obstruction not excluded. Fecal material is seen in the colon. There are normal size retroperitoneal and mesenteric lymph nodes. No ascites is seen. Atherosclerotic changes are present. Pelvic sidewalls are symmetric bilaterally. Bladder is poorly distended. IMPRESSION: 1. Mild small bowel dilatation is seen may be related to enterocolitis with early bowel obstruction not excluded. CT was performed with one or more following dose reduction techniques: automated exposure control, adjustment of the mA and kv according to patient's size, or use of a iterative reconstruction technique.
[2024-04-24 08:48] LABS: APPEARANCE,URINE CLEAR (CLEAR); BILIRUBIN,URINE NEGATIVE (NEGATIVE); COLOR,URINE YELLOW (YELLOW); GLUCOSE, URINE (UA) NEGATIVE (NEGATIVE); KETONES,URINE 10 mg/dL (NEGATIVE); LEUKOCYTE ESTERASE ,URINE 75 Leu/uL (NEGATIVE); NITRATE,URINE NEGATIVE (NEGATIVE); OCCULT BLOOD,URINE NEGATIVE (NEGATIVE); PROTEIN,URINE 300 mg/dL (NEGATIVE); UROBILINOGEN,URINE 0.2 mg/dL (0.2-1.0)
[2024-04-24 08:50] LABS: ADD UA MICROSCOPIC YES; MUCUS,URINE RARE LPF (None Seen); SQUAMOUS EPITHELIAL CELL,UR RARE /HPF (0-2)
[2024-04-24] MEDS ORDERED: ENOXAPARIN SODIUM 30 MG/0.3 ML SQ SCH (09:00)
[2024-04-24] MEDS ORDERED: ondanSETRON 4MG INJ IVP PRN ×2 (09:00→09:30)
[2024-04-24] MEDS ORDERED: DEXTROSE 5 % AND 0.9 % NACL 1,000 ML IV SCH (09:00)
[2024-04-24] MEDS ORDERED: morPHINE 2 MG SYG IVP PRN (09:00)
[2024-04-24] MEDS: ketOROlac 15MG/ML VIAL (15MG/ML) IV ONE (09:41)
[2024-04-24] MEDS: DEXTROSE 5 % AND 0.9 % NACL 1,000 ML IV SCH (09:42)
[2024-04-24] MEDS: ENOXAPARIN SODIUM 30 MG/0.3 ML SQ SCH (09:43)
[2024-04-24] MEDS: OXYmetazolone HCL SPRAY 15 ML BOTTLE EN STA (09:45)
[2024-04-24] MEDS: LIDOCAINE HCL 2% VISCOUS 15 ML UDCUP PO ONE (09:45)
--- NOTE | 2024-04-24 10:57 | NUR ---
sr. camacho made aware of consult.
--- NOTE | 2024-04-24 11:10 | NUR ---
RECEIVED PATIENT FROM EMERGENCY DEPARTMENT. PATIENT ALERT, ORIENTED IN PERSON, TIME AND PLACE. NO SIGNS OF RESPIRATORY DISTRESS NOTED. BOWEL SOUND ABSENT IN ALL FOUR ABDOMINAL QUADRANTS. ABDOMEN TENDER, DISTENDED BUT SOFT. PATIENT HAS A NASOGASTRIC TUBE ON HER RIGHT WITT, SECURED WITH MEDICAL TAPE. NASOGASTRIC TUBE PATENT, CONNECTED TO LOW INTERMITTENT WALL SUCTION; GASTRIC CONTENT LIGHT GREEN COLOR. PATIENT WITH STEADY GAIT. PIV ON RIGHT ANTECUBITAL 20G. DORSALIS PEDIS PULSES PRESENT ON BOTH FEET.
[2024-04-24 11:41] VITALS: BP 137/57; PULSE 60; RESP 18; TEMP 98
[2024-04-24] MEDS: morPHINE 2 MG SYG IVP PRN (12:43)
[2024-04-24 16:24] VITALS: BP 136/64; PULSE 70; RESP 18; TEMP 98.3
--- NOTE | 2024-04-24 17:27 | CONS ---
CONSULT NOTE: Consulting physician:Dr Tomas Consulting service: General surgery Reason for consultation: Small bowel obstruction History of present illness: This 68-year-old female with a medical history noted below most notably recurrent small-bowel obstructions has been consulted to surgery for concerns of possible recurrent obstruction. Patient reports that she had presented Saturday to the hospital with concerns of abdominal pain and been treated for colitis and sent home with antibiotics but due to concerning nonrelenting discomfort patient presented to the hospital for re-evaluation WBCs 9.2 hemo globin 11.7. Imaging concerning for possible in her colitis versus obstruction. Patient reports last bowel movement two yesterday and flatus yesterday. Patient currently with NG tube with minimal to no output. On physical exam patient with some abdominal discomfort generalized but not peritonitic. Patient on IV fluids and IV antibiotics Medical history: Past Medical History: Hypertension Medical History Other: SBO Past Surgical History: Cholecystectomy Surgical History Other: HX OF BOWEL RESECTION Review of systems: General: No Fever, No Chills, No Night Sweats, No Fatigue, No Malaise, No Appetite, No Other HEENT: No Head Aches, No Visual Changes, No Eye Pain, No Ear Pain, No Dysphasia, No Sinus Congestion, No Post Nasal Drip, No Sore Throat, No Other Pulmonary: No Dyspnea, No Cough, No Pleuritic Chest Pain, No Other Cardiovascular: No: Chest Pain, Palpitations, Orthopnea, Paroxysmal No Dyspnea, Edema, Lt Headedness, Other Gastrointestinal: No: Nausea, Vomiting, Diarrhea, Constipation, Melena, Hematochezia, Other Genitourinary: No Dysuria, No Frequency, No Incontinence, No Hematuria, No Retention, No Other Musculoskeletal: No: other, neck pain, shoulder pain, arm pain, back pain, hand pain, leg pain, foot pain Skin: No Urticaria, No Rash, No Other Neurological: No: Weakness, Numbness, Incoordination, Change in speech, Confusion, Seizures, Other Physical exam: General: Awake alert and oriented Heart: Regular rate and rhythm} Lungs: [Clear to auscultation no distress Abdomen: [Generalized abdominal pain Assessment: This is a 68-year-old female with concerns of small bowel obstruction Plan: At this point in time patient is to remain NPO NG tube to remain to LIS No surgical intervention planned at this time Surgical team to follow patient closely\ Repeat KUB tomorrow morning Dr. Berg to be updated in patient's status and surgical team to follow patient closely PETROS MUKHERJEE Jr. Apr 24, 2024 17:27
[2024-04-24] MEDS: ketOROlac 30MG VIAL (30MG/ML) IVP PRN (18:05)
[2024-04-24] MEDS ORDERED: AMLO-258 PO (18:06)
[2024-04-24 18:22] VITALS: O2SAT 97
--- NOTE | 2024-04-24 19:00 | NUR ---
NASOGASTRIC TUBE RESIDUAL 150 ML FROM 1200 TO 1900.
[2024-04-24 20:00] VITALS: BP 120/42; PULSE 63; RESP 18; TEMP 98.2; O2SAT 96
[2024-04-25] VITALS: BP 139/60; PULSE 85; RESP 16; TEMP 98.1
--- NOTE | 2024-04-25 01:21 | HP ---
DATE OF SERVICE: 04/24/2024. HISTORY AND PHYSICAL PRESENTING COMPLAINT: Abdominal pain, nausea and vomiting. HISTORY OF PRESENT ILLNESS: This is a 68-year-old female with history of hypertension, recurrent small bowel obstruction, presented to the hospital with abdominal pain, nausea and vomiting. The patient's symptoms started two days ago. The patient actually was in the Emergency Room yesterday for same complaints, found to have possible small bowel obstruction. The patient now returned to the Emergency Room due to persistent nausea, vomiting, and abdominal pain. CT of the abdomen shows persistent small bowel obstruction. Denied fever or chills. PAST MEDICAL HISTORY: * Hypertension. * Small bowel obstruction. PAST SURGICAL HISTORY: * Cholecystectomy. * Colectomy. HOME MEDICATIONS: Reviewed. SOCIAL HISTORY: Lives with her . Smoke and drink. FAMILY HISTORY: Noncontributory. REVIEW OF SYSTEMS: Greater than 10 systems were reviewed, negative except as documented above. PHYSICAL EXAMINATION: GENERAL: Elderly female, awake. VITAL SIGNS: Temperature 98.1, pulse 60, respiratory rate 18, and BP 137/57. EYES: No icterus. Pupils equal and reactive. HENT: No oral thrush seen. Moist oral mucosa. NECK: Supple, no JVD or thyromegaly. LUNGS: Good air entry. No rales, no rhonchi. CARDIOVASCULAR: S1, S2 regular. No murmur heard ABDOMEN: Full, soft. Tender to the right lower quadrant. CENTRAL NERVOUS SYSTEM: Awake, alert, and oriented x 3. No focal deficits. SKIN: No rashes, no itchiness. LYMPHATIC: No peripheral lymphadenopathy. BACK: No deformity, no pressure ulcer. LABORATORY DATA: Sodium 141, potassium 4.1, BUN 13, and creatinine 1.1. WBC 9.2, hemoglobin 11.7, and platelet 241. RADIOLOGY: CT of the abdomen shows mild small bowel dilatation. ASSESSMENT: A 68-year-old female presenting with nausea and vomiting. CURRENT PROBLEMS: Include: * Small bowel obstruction. * Nausea and vomiting. * Abdominal pain. * Hypertension. PLAN: * The patient will be admitted to the medical floor. * The patient made n.p.o. * Start NG tube connected to low intermittent suction. * General Surgery evaluation. * ____. * Monitor electrolytes and correct as needed. * Morphine as needed for pain. * Lovenox for DVT prophylaxis. TID: [id number] RECEIPT: [id number] [facility]
[2024-04-25 04:00] VITALS: BP 122/57; PULSE 75; RESP 18; TEMP 98.3
[2024-04-25 04:31] LABS: BASOPHILS # (AUTO) 0.02 K/uL (0.00-0.20); BASOPHILS % (AUTO) 0.3 % (0.0-5.0); EOSINOPHILS # (AUTO) 0.13 K/uL (0.00-0.70); HEMATOCRIT 32.6 % (36-48); IMMATURE GRANULOCYTE ABSOLUTE 0.02 K/uL (0-1); LYMPHOCYTES # (AUTO) 1.1 K/uL (1.0-4.8); LYMPHOCYTES % (AUTO) 16.9 % (21.0-51.0); MEAN CORPUSCULAR HEMOGLOBIN 28.9 pg (27.0-33.0); MEAN CORPUSCULAR HGB CONC 31.9 g/dL (32.0-36.0); MEAN CORPUSCULAR VOLUME 90.6 fL (79-99); MONOCYTES # (AUTO) 0.7 K/uL (0.1-1.0); NEUTROPHILS # (AUTO) 4.7 K/uL (1.8-7.7); NEUTROPHILS % (AUTO) 70.5 % (40.0-77.0); PLATELET COUNT (AUTO) 217 K/uL (130-400); RED CELL DISTRIBUTION WIDTH 14.9 % (11.0-15.5); WHITE BLOOD COUNT (AUTO) 6.6 K/uL (4.8-10.8)
[2024-04-25 04:51] LABS: CREATININE 0.9 mg/dL (0.5-1.0)
[2024-04-25 04:59] LABS: MAGNESIUM 1.9 mg/dL (1.80-2.40)
[2024-04-25 08:00] VITALS: BP 141/59; PULSE 81; RESP 17; TEMP 97.6; O2SAT 99
--- NOTE | 2024-04-25 08:34 | PN ---
Patient with small-bowel obstruction and NG tube in place. However at about 200 mL out of the NG tube overnight. Having no flatus today. No bowel movement since Saturday. Reports that cramping today is more than yesterday. She has been walking. Exam Alert and oriented X3 cardiovascular regular rhythm No respiratory distress Abdomen is distended, tender to palpation of right lower quadrant and left lower quadrant. No peritonitis. No hernias palpated Extremities no edema Assessment and plan. Patient was small-bowel obstruction that is not resolving. Encouraged patient to continue ambulated. She could do gum to see if this can help stimulate some peristalsis. Continue NG tube in place. Okay for ice chips. We did discuss that if not opening up by tomorrow she might need an exploratory laparoscopy for lysis of adhesions. Vitals/Labs Vital Signs Date Time Temp Pulse Resp B/P (MAP) Pulse Ox O2 Delivery O2 Flow Rate FiO2 04/25/24 08:00 97.5 81 17 141/59 96 Room Air 21 04/24/24 20:00 0 Laboratory Tests 04/25/24 04:03 Medications Current Medications Enoxaparin Sodium 30 mg DAILY SQ; Start 04/24/24 at 09:00; Stop 04/24/24 at 09:26; Status DC Ondansetron HCl 4 mg Q6H PRN IVP; Start 04/24/24 at 09:00; Stop 04/24/24 at 09:26; Status DC Morphine Sulfate 2 mg Q6H6 PRN IVP; Start 04/24/24 at 09:00; Stop 04/24/24 at 09:26; Status DC Dextrose/Sodium Chloride 1,000 ml @ 100 mls/hr Q10H IV; Start 04/24/24 at 09:00; Stop 04/24/24 at 09:26; Status DC Oxymetazoline HCl 2 sprays ONCE STAT EN Last administered on 04/24/24at 09:45; Start 04/24/24 at 09:22; Stop 04/24/24 at 09:24; Status DC Ketorolac Tromethamine 15 mg ONCE ONCE IV Last administered on 04/24/24at 09:41; Start 04/24/24 at 09:30; Stop 04/24/24 at 09:31; Status DC Enoxaparin Sodium 30 mg DAILY SQ Last administered on 04/24/24at 09:43; Start 04/25/24 at 09:00; Stop 05/25/24 at 08:59 Ondansetron HCl 4 mg Q6H PRN IVP; Start 04/24/24 at 09:30; Stop 05/24/24 at 09:29 Morphine Sulfate 2 mg Q6H6 PRN IVP Last administered on 04/24/24at 12:43; Start 04/24/24 at 09:30; Stop 05/01/24 at 09:29 Dextrose/Sodium Chloride 1,000 ml @ 100 mls/hr Q10H IV Last administered on 04/25/24at 05:40; Start 04/24/24 at 09:30; Stop 05/24/24 at 09:29 Lidocaine HCl 10 ml ONCE ONCE PO Last administered on 04/24/24at 09:45; Start 04/24/24 at 09:30; Stop 04/24/24 at 09:31; Status DC Ketorolac Tromethamine 30 mg Q6H PRN IVP Last administered on 04/25/24at 02:17; Start 04/24/24 at 17:30; Stop 04/29/24 at 17:29 Simethicone 80 mg TID PO; Start 04/25/24 at 09:00; Stop 05/25/24 at 08:59 JUVENAL DIAZ MD Apr 25, 2024 08:34
[2024-04-25] MEDS: SIMETHICONE 80 MG TAB.CHEW PO SCH (09:15)
--- NOTE | 2024-04-25 09:35 | HMCIMG ---
ABDOMEN SINGLE VIEW INDICATION: Pain COMPARISON: None FINDINGS: Supine view only No abnormal bowel dilation noted. No abnormal calcifications identified. No gross free air detected. Tip of NG tube within the proximal stomach. IMPRESSION: No evidence for bowel obstruction.
[2024-04-25 12:00] VITALS: BP 140/59; PULSE 86; RESP 16; TEMP 98.1
[2024-04-25 16:00] VITALS: BP 159/62; PULSE 82; RESP 19; TEMP 98
--- NOTE | 2024-04-25 17:01 | NUR ---
INITIAL/DCP HOME Met w pt this afternoon to discuss dcp. Pt admitted w SBO. EC spouse Rian Cope [phone]. PCP Dr Jones. Preferred pharmacy is [facility]. Pt lives at home w her spouse. She is independent w ambulation and ADLs. She does not own any DME or receive services. Pt mentions that she feels safe and comfortable to return home at ar. Addendum: 04/26/24 at 1703 by FAHAD DUENAS Amended: Links added.
--- NOTE | 2024-04-25 19:00 | NUR ---
NASOGASTRIC TUBE RESIDUAL 250 ML FROM DAY SHIFT ( 7A - 7P).
[2024-04-25 20:00] VITALS: BP 149/64; PULSE 83; RESP 19; TEMP 98.6; O2SAT 96
--- NOTE | 2024-04-25 20:00 | NUR ---
PATIENT TOLERATED ICE CHIPS THROUGHOUT THE DAY, NO VOMITING OR INDIGESTION.
--- NOTE | 2024-04-25 20:01 | NUR ---
HAD 4 BOWEL MOVEMENTS FROM 1200 - 1800. SOFT, NO VISIBLE BLOOD.
--- NOTE | 2024-04-25 22:26 | PN ---
DATE OF SERVICE: 04/25/2024. INFECTIOUS DISEASE FOLLOWUP NOTE SUBJECTIVE: The patient is seen and examined at bedside. No fever or chills. Still has abdominal pain. No nausea or vomiting. The patient is yet to pass gas or bowel movement. No rashes, no itchiness. No palpitation or orthopnea. The patient has been seen by General Surgery. PHYSICAL EXAMINATION: VITAL SIGNS: Temperature 97.0. EYES: No icterus. Pupils equal and reactive. HENT: No oral thrush seen. Moist oral mucosa. NECK: Supple, no JVD or thyromegaly. LUNGS: Good air entry. No rales, no rhonchi. CARDIOVASCULAR: S1, S2 regular. No murmur heard. ABDOMEN: Full, soft, and nontender. Bowel sounds are hypoactive. CENTRAL NERVOUS SYSTEM: Awake, alert, and oriented x 3. No focal deficits. SKIN: No rashes, no itchiness. LYMPHATIC: No peripheral lymphadenopathy. BACK: No deformity, no pressure ulcer. MUSCULOSKELETAL: No joint swelling, erythema or tenderness. ASSESSMENT: A 68-year-old female presenting with nausea, vomiting and abdominal pain. CURRENT PROBLEMS: Include: * Small bowel obstruction. * Hypertension. * Abdominal pain. * Dehydration. * Nausea and vomiting. PLAN: * Continue NG tube decompression. * Continue antihypertensive. * Continue antiemetic. * Continue IV fluid. * Continue pain management. * Monitor electrolytes and correct as needed. TID: [id number] RECEIPT: [id number]
[2024-04-26] VITALS (7 sets, daily range): BP systolic 128–156; BP diastolic 60–69; PULSE 63–81; RESP 16–19; TEMP 97.5–98.6; O2SAT 97–98
--- NOTE | 2024-04-26 10:30 | PN ---
GENERAL SURGERY PROGRESS NOTE Date/Time Patient Seen: [ ] Problem List: Small bowel obstruction Interval History: Patient has had six bowel movements since yesterday. NG tube has had minimal output. No nausea nor vomiting. Current Medications Medications (Trade) Dose Ordered Sig/Antwan Route Start Time Stop Time Status Last Admin Dose Admin Dextrose/Sodium Chloride 1,000 ml @ 100 mls/hr Q10H IV 04/24/24 09:00 04/24/24 09:26 DC Dextrose/Sodium Chloride 1,000 ml @ 100 mls/hr Q10H IV 04/24/24 09:30 05/24/24 09:29 04/26/24 00:50 100 MLS/HR Enoxaparin Sodium (Lovenox) 30 mg DAILY SQ 04/24/24 09:00 04/24/24 09:26 DC Enoxaparin Sodium (Lovenox) 30 mg DAILY SQ 04/25/24 09:00 05/25/24 08:59 04/24/24 09:43 30 MG Oxymetazoline HCl (AFrin) 2 sprays ONCE STAT EN 04/24/24 09:22 04/24/24 09:24 DC 04/24/24 09:45 2 SPRAYS Simethicone (Mylicon) 80 mg TID PO 04/25/24 09:00 05/25/24 08:59 04/26/24 08:29 80 MG Physical Examination: GENERAL: [No acute distress.] HEAD: [Normal with no signs of head trauma.] EYES: [PERRLA, NECK: [Trachea midline LUNGS: [Clear breath sounds bilaterally. ABD: [Bowel sounds normal, soft, nontender, no masses, NEURO: [Awake, alert, and oriented x3. Vital Signs (last 8hr) Date Time Temp Pulse Resp B/P (MAP) Pulse Ox O2 Delivery O2 Flow Rate FiO2 04/26/24 07:51 97.5 63 16 155/69 97 Room Air 04/26/24 04:00 97.7 68 18 156/67 96 Room Air Laboratory: [ ] Hematology Labs: Test 04/25/24 04:03 Range/Units White Blood Count 6.6 # 4.8-10.8 K/uL Red Blood Count 3.60 L 4.00-5.50 MIL/uL Hemoglobin 10.4 L 12.0-16.0 g/dL Hematocrit 32.6 L 36-48 % Mean Corpuscular Volume 90.6 79-99 fL Mean Corpuscular Hemoglobin 28.9 27.0-33.0 pg Mean Corpuscular Hemoglobin Concent 31.9 L 32.0-36.0 g/dL Red Cell Distribution Width 14.9 11.0-15.5 % Platelet Count 217 130-400 K/uL Mean Platelet Volume 9.9 7.5-10.5 fL Immature Granulocyte % (Auto) 0.3 0-1 % Neutrophils (%) (Auto) 70.5 40.0-77.0 % Lymphocytes (%) (Auto) 16.9 L 21.0-51.0 % Monocytes (%) (Auto) 10.0 3.0-13.0 % Eosinophils (%) (Auto) 2.0 0.0-8.0 % Basophils (%) (Auto) 0.3 0.0-5.0 % Neutrophils # (Auto) 4.7 1.8-7.7 K/uL Lymphocytes # (Auto) 1.1 1.0-4.8 K/uL Monocytes # (Auto) 0.7 0.1-1.0 K/uL Eosinophils # (Auto) 0.13 0.00-0.70 K/uL Basophils # (Auto) 0.02 0.00-0.20 K/uL Absolute Immature Granulocyte (auto 0.02 0-1 K/uL Nucleated Red Blood Cells 0.0 0.0-0.19 % Chemistry Labs: Test 04/25/24 04:03 Range/Units Sodium Level 146 H 136-145 mmol/L Potassium Level 4.0 3.5-5.1 mmol/L Chloride Level 110 101-111 mmol/L Carbon Dioxide Level 28 21-32 mmol/L Blood Urea Nitrogen 10 7-18 mg/dL Creatinine 0.9 0.5-1.0 mg/dL Glomerular Filtration Rate Calc 69 >90 mL/min Random Glucose 120 H 70-105 mg/dL Total Calcium 8.2 L 8.5-10.1 mg/dL Magnesium Level 1.90 1.80-2.40 mg/dL Diagnostics / Radiology: [Copy/Paste Echos/Imaging Report here] Impression and Plan: Resolving small bowel obstruction. Okay to DC the NG tube. Start on a clear liquid diet. If tolerating well tomorrow can be advanced to a full liquid diet. JUVENAL DIAZ MD Apr 26, 2024 10:30
--- NOTE | 2024-04-26 10:54 | NUR ---
DISCONTINUED NASOGASTRIC TUBE PER DR. DIAZ ORDERS. PATIENT TOLERATED PROCEDURE WELL. DISCUSSED PLAN OF CARE, PAIN MANAGEMENT AND NEW DIET /RESTRICTIONS. PATIENT VERBALIZED UNDERSTANDING.
--- NOTE | 2024-04-26 19:00 | NUR ---
PATIENT TOLERATED DIET.
[2024-04-27] VITALS (8 sets, daily range): BP systolic 127–146; BP diastolic 56–70; PULSE 62–74; RESP 17–20; TEMP 98.2–98.5; O2SAT 97–98
--- NOTE | 2024-04-27 03:04 | PN ---
INFECTIOUS DISEASE FOLLOWUP NOTE SUBJECTIVE: The patient is seen and examined at bedside today. No fever, no chills. No nausea, no vomiting, no abdominal pain. No cough, no shortness of breath, no palpitation or orthopnea. The patient able to pass gas and have bowel movement. The patient has been started on clear liquid diet by General Surgery. PHYSICAL EXAMINATION: VITAL SIGNS: Temperature 96.7. EYES: No icterus. Pupils equal and reactive. HENT: No oral thrush seen. Moist oral mucosa. NECK: Supple. No JVD or thyromegaly. LUNGS: Good air entry. No rales, no rhonchi. CARDIOVASCULAR: S1, S2 regular. No murmur heard. ABDOMEN: Obese, soft, nontender. Bowel sounds present. CENTRAL NERVOUS SYSTEM: Awake, alert and oriented x 3. No focal deficits. SKIN: No rashes, no itchiness. LYMPHATIC: No peripheral lymphadenopathy. BACK: No deformity, no pressure ulcer. HEMATOLOGIC: No bleeding or peripheral lesions seen. MUSCULOSKELETAL: No joint swelling, erythema or tenderness. ASSESSMENT: A 68-year-old female presenting with abdominal pain. Current problems include: * Small bowel obstruction. * Hypertension. * Abdominal pain. PLAN: * Continue liquid diet. * Continue antiemetic. * Continue antihypertensive. * Continue nutritional support. * Monitor electrolytes. * Continue GI prophylaxis. * The patient will be followed up closely. TID: [id number] RECEIPT: [id number]
[2024-04-27 04:36] LABS: HEMATOCRIT 29.8 % (36-48); MEAN CORPUSCULAR HEMOGLOBIN 29.5 pg (27.0-33.0); MEAN CORPUSCULAR HGB CONC 32.6 g/dL (32.0-36.0); MEAN CORPUSCULAR VOLUME 90.6 fL (79-99); RED BLOOD CELL COUNT(AUTO) 3.29 MIL/uL (4.00-5.50); RED CELL DISTRIBUTION WIDTH 14.6 % (11.0-15.5); WHITE BLOOD COUNT (AUTO) 5.6 K/uL (4.8-10.8)
[2024-04-27 04:57] LABS: CREATININE 0.7 mg/dL (0.5-1.0); MAGNESIUM 1.6 mg/dL (1.80-2.40)
[2024-04-27] MEDS ORDERED: PoTASSium chl 10% ELIXIR 20MEQ 20 MEQ/15 ML UDCUP PO PRN (06:00)
[2024-04-27] MEDS: PoTASSium chloRIDE 20MEQ ER 20 MEQ ERTAB PO PRN (06:25)
[2024-04-27] MEDS: PoTASSium chloRIDE 20MEQ/100ML 100 ML IV PRN (06:25)
--- NOTE | 2024-04-27 10:30 | PN ---
This is a 68-year-old female with a resolving small bowel obstruction Interval history: This 68-year-old female seen in her resting Patient has tolerated clear liquids Patient with multiple bowel movements overnight and this morning and passing gas No abdominal pain reported Labs unremarkable Patient is hemodynamically stable Physical exam General: Awake alert and oriented Heart: Regular rate and rhythm} Lungs: Clear to auscultation no distress Abdomen: [Soft, nontender, nondistended Assessment : This is a 68-year-old female with small-bowel resolved Plan: No further surgical intervention planned Patient to advance diet as tolerated Once patient is cleared by medical team patient is cleared from surgical standpoint for discharge home Dr. Berg to be updated in patient's status and nursing report any further acute events Vitals/Labs Vital Signs Date Time Temp Pulse Resp B/P (MAP) Pulse Ox O2 Delivery O2 Flow Rate FiO2 04/27/24 07:33 98.2 74 18 134/69 98 Room Air 21 04/26/24 20:00 0 Laboratory Tests 04/27/24 04:03 Medications Current Medications Enoxaparin Sodium 30 mg DAILY SQ; Start 04/24/24 at 09:00; Stop 04/24/24 at 09:26; Status DC Ondansetron HCl 4 mg Q6H PRN IVP; Start 04/24/24 at 09:00; Stop 04/24/24 at 09:26; Status DC Morphine Sulfate 2 mg Q6H6 PRN IVP; Start 04/24/24 at 09:00; Stop 04/24/24 at 09:26; Status DC Dextrose/Sodium Chloride 1,000 ml @ 100 mls/hr Q10H IV; Start 04/24/24 at 09:00; Stop 04/24/24 at 09:26; Status DC Oxymetazoline HCl 2 sprays ONCE STAT EN Last administered on 04/24/24at 09:45; Start 04/24/24 at 09:22; Stop 04/24/24 at 09:24; Status DC Ketorolac Tromethamine 15 mg ONCE ONCE IV Last administered on 04/24/24at 09:41; Start 04/24/24 at 09:30; Stop 04/24/24 at 09:31; Status DC Enoxaparin Sodium 30 mg DAILY SQ Last administered on 04/27/24at 09:12; Start 04/25/24 at 09:00; Stop 1/6/25 at 08:59 Ondansetron HCl 4 mg Q6H PRN IVP; Start 04/24/24 at 09:30; Stop 05/24/24 at 09:29 Morphine Sulfate 2 mg Q6H6 PRN IVP Last administered on 04/24/24at 12:43; Start 04/24/24 at 09:30; Stop 04/27/24 at 08:03; Status DC Dextrose/Sodium Chloride 1,000 ml @ 100 mls/hr Q10H IV Last administered on 04/27/24at 06:34; Start 04/24/24 at 09:30; Stop 04/27/24 at 09:34; Status DC Lidocaine HCl 10 ml ONCE ONCE PO Last administered on 04/24/24at 09:45; Start 04/24/24 at 09:30; Stop 04/24/24 at 09:31; Status DC Ketorolac Tromethamine 30 mg Q6H PRN IVP Last administered on 04/26/24at 14:22; Start 04/24/24 at 17:30; Stop 04/29/24 at 17:29 Simethicone 80 mg TID PO Last administered on 04/27/24at 09:10; Start 04/25/24 at 09:00; Stop 05/25/24 at 08:59 Potassium Chloride 20 meq AD PRN PO; Start 04/27/24 at 06:00; Stop 05/27/24 at 05:59 Potassium Chloride 20 meq AD PRN PO Last administered on 04/27/24at 09:12; Start 04/27/24 at 06:00; Stop 05/27/24 at 05:59 Potassium Chloride 100 ml @ 50 mls/hr AD PRN IV Last administered on 04/27/24at 06:25; Start 04/27/24 at 06:00; Stop 05/27/24 at 05:59 Magnesium Sulfate 50 ml @ 0 mls/hr PROTOCOL PRN IV; Start 04/27/24 at 06:00; Stop 05/27/24 at 05:59 PETROS MUKHERJEE Jr. Apr 27, 2024 10:30
[2024-04-27] MEDS: MAGNESIUM 2GM PREMIX 50ML 50 ML IV PRN (11:39)
--- NOTE | 2024-04-27 16:04 | PN ---
INFECTIOUS DISEASE PROGRESS NOTE Date of Service: Apr 27, 2024 SUBJECTIVE: This is a 68-year-old female patient with past medical history of recurrent small-bowel obstruction who presented to the hospital with chief complaint of nausea or vomiting and abdominal pain. A CT of the abdomen showed small bowel dilatation which may be related to enterocolitis with early bowel obstruction not excluded. On admission patient was placed on an NG tube to low intermittent suction. General surgery was consulted and evaluated patient. Today during examination patient is up ambulating in the room without discomfort. Patient's diet is being advanced as tolerated by the general surgeon team and is currently on full liquid diet. Patient is denying nausea or vomiting at this time. No reports of fever and the current temperature is 98.4 and a WBC of 5.6. We will plan to discharge patient tomorrow if stable and tolerates diet. PHYSICAL EXAM EYES: Anicteric. Pupils equal and reactive. HENT: No oral thrush seen, moist Oral mucosa NECK: Supple, no JVD or thyromegaly. LUNGS: Good air entry. No rales, no rhonchi. CARDIOVASCULAR: S1, S2 regular. No murmur heard. ABDOMEN: Soft, non tender, bowel sounds present, no organomegaly CENTRAL NERVOUS SYSTEM: Awake, alert, oriented x 3. No focal deficits. SKIN: No rashes, no swelling. LYMPHATICS: No peripheral lymphadenopathy MUSCULOSKELETAL: No joint swelling, erythema or tenderness. EXTREMITIES: No cyanosis or clubbing BACK: No deformity, no pressure ulcer. GENITOURINARY: No dysuria or hematuria Vital Sign (Last 12 Hours) 04/27/24 04/27/24 04/27/24 04:05 07:33 11:13 Temp 98.4 98.2 98.4 Pulse 66 74 69 Resp 17 18 18 B/P (MAP) 138/66 134/69 127/64 Pulse Ox 97 98 95 O2 Delivery Room Air Room Air Room Air FiO2 21 21 LABS: Laboratory: Test 04/27/24 04:03 Range/Units White Blood Count 5.6 4.8-10.8 K/uL Red Blood Count 3.29 L 4.00-5.50 MIL/uL Hemoglobin 9.7 L 12.0-16.0 g/dL Hematocrit 29.8 L 36-48 % Mean Corpuscular Volume 90.6 79-99 fL Mean Corpuscular Hemoglobin 29.5 27.0-33.0 pg Mean Corpuscular Hemoglobin Concent 32.6 32.0-36.0 g/dL Red Cell Distribution Width 14.6 11.0-15.5 % Platelet Count 213 130-400 K/uL Mean Platelet Volume 9.9 7.5-10.5 fL Nucleated Red Blood Cells 0.0 0.0-0.19 % Sodium Level 144 136-145 mmol/L Potassium Level 3.0 *L 3.5-5.1 mmol/L Chloride Level 110 101-111 mmol/L Carbon Dioxide Level 25 21-32 mmol/L Blood Urea Nitrogen 9 7-18 mg/dL Creatinine 0.7 0.5-1.0 mg/dL Glomerular Filtration Rate Calc 94 >90 mL/min Random Glucose 82 70-105 mg/dL Total Calcium 8.3 L 8.5-10.1 mg/dL Magnesium Level 1.60 L 1.80-2.40 mg/dL ASSESSMENT: Abdominal pain, resolved. Small-bowel obstruction resolving. Hypertension. PLAN: Diet is being advanced as recommended by General surgery, currently on full liquid diet. Continue antiemetics. Continue pain management. We will monitor electrolytes. Discharge planning for tomorrow if stable and tolerates diet. This case was reviewed and discussed with my supervising physician and the above assessment and plan was formulated and agreed upon. ATTESTATION BY PHYSICIAN I have seen and examined the patient. I reviewed the documentation, medical decision making, and treatment plan as noted by the mid-level provider above. I agree with the findings and plan of care. AILYN JOYNER MD, [facility] Apr 27, 2024 16:04
[2024-04-28] VITALS: BP 128/48; PULSE 61; RESP 20; TEMP 97.8
[2024-04-28 03:42] VITALS: BP 128/70; PULSE 76; RESP 17; TEMP 98.6
[2024-04-28 04:00] VITALS: BP 145/52; PULSE 64; RESP 20; TEMP 98.1
[2024-04-28 07:38] LABS: HEMATOCRIT 31.9 % (36-48); MEAN CORPUSCULAR HEMOGLOBIN 28.8 pg (27.0-33.0); MEAN CORPUSCULAR HGB CONC 32.6 g/dL (32.0-36.0); MEAN CORPUSCULAR VOLUME 88.4 fL (79-99); RED BLOOD CELL COUNT(AUTO) 3.61 MIL/uL (4.00-5.50); RED CELL DISTRIBUTION WIDTH 14.3 % (11.0-15.5); WHITE BLOOD COUNT (AUTO) 5.4 K/uL (4.8-10.8)
[2024-04-28 07:52] VITALS: BP 145/64; PULSE 68; RESP 16; TEMP 98
[2024-04-28 08:01] LABS: BILIRUBIN,TOTAL 0.2 mg/dL (0.2-1.0); CREATININE 0.8 mg/dL (0.5-1.0); POTASSIUM 4.2 mmol/L (3.5-5.1); TOTAL PROTEIN, SERUM 6.5 g/dL (6.0-8.3)
[2024-04-28 08:53] VITALS: O2SAT 99
[2024-04-28 10:50] VITALS: BP 153/87; PULSE 74; RESP 18; TEMP 97.8
--- NOTE | 2024-04-28 14:00 | NUR ---
DISCHARGE PIV DC'D DISCHARGE INSTRUCTIONS GIVEN TO THE PATIENT. ALL QUESTIONS ANSWERED PRIOR TO DISCHARGE.
--- NOTE | 2024-04-28 18:53 | DS ---
PRESENTING COMPLAINT: Nausea, vomiting and abdominal pain. HOSPITAL COURSE: A 68-year-old female with history of hypertension, recurrent bowel obstruction, presented to the hospital with abdominal pain, nausea and vomiting. Imaging was done, showed the patient to have bowel obstruction. NG tube was inserted, connected to low intermittent suction. The patient was seen by General Surgery, who advised conservative management. The patient eventually had bowel movement, passing gas. She has been started on diet, which she is tolerating. The patient had done well clinically. The patient cleared for discharge. FINAL DISCHARGE DIAGNOSES: * Small-bowel obstruction. * Nausea and vomiting has resolved. * Abdominal pain. * Hypertension. PLAN: * The patient will be discharged home. * Continue antihypertensive. * ____. * Follow up pulmonary care physician. * Follow up with surgical team. TID: [id number] RECEIPT: [id number]
== END 2024-04-28 14:25 | disposition left against medical advice (07) | DRG 390 ==
LOC: EDH 07:30 → EDHIP 08:54 → 3BH 11:10
PROVIDERS: ADMIT Internal Medicine Infectious Disease; ATTEND Internal Medicine Infectious Disease
PROC: 0D9670Z Drainage of Stomach with Drainage Device, Via Natural or Artificial Opening (ICD-10-PCS; principal; 2024-04-24)
DX: K56.609 Unspecified intestinal obstruction, unspecified as to partial versus complete obstruction (principal); I10 Essential (primary) hypertension; E86.0 Dehydration; Z53.29 Procedure and treatment not carried out because of patient's decision for other reasons; Z90.49 Acquired absence of other specified parts of digestive tract; Z88.8 Allergy status to other drugs, medicaments and biological substances; Z79.82 Long term (current) use of aspirin; Z79.899 Other long term (current) drug therapy
CPT/HCPCS: 36415; 74018; 74176; 80048; 80053; 81001; 82550; 83690; 83735; 84484; 85025; 85027; 87086; 93005; 96374; 96375; 99285; G0378; J1650; J1885; J2270; J3475; J3480; J7042